=== PATIENT | male | born 1955 | race Caucasian/White ===

== ENCOUNTER → 2022-03-10 09:44 | Outpatient (POV) | payer BC, SELFPAY | PROVIDERS: Visit Provider Dermatology | DX: Z00.00 Encounter for general adult medical examination without abnormal findings (principal) ==

== ENCOUNTER → 2022-09-08 10:42 | Outpatient (CLI) | payer MEDICARE, SELFPAY ==
--- NOTE | 2022-09-08 10:51 | XR_ITS ---
FINAL REPORT CLINICAL HISTORY: left posterior shoulder pain that radiates into arm, numbness in left arm and fingers FINDINGS: LEFT SHOULDER 3 views of the left shoulder were obtained. There is no acute fracture or dislocation. There are mild degenerative changes of the acromioclavicular and glenohumeral joints.. There is no soft tissue abnormality. IMPRESSION: Mild degenerative change with no acute bony abnormality. Reviewed, Interpreted and Dictated by Lito Tolliver III, MD Transcribed by Courtney You Authenticated and [facility]
== END ==
PROVIDERS: PCP Nurse Practitioner Family; Visit Provider Orthopaedic Surgery
DX: M25.512 Pain in left shoulder (principal)
CPT/HCPCS: 73030

== ENCOUNTER → 2023-05-05 13:04 | Outpatient (CLI) | payer MEDICARE, OTHER, SELFPAY ==
[2023-05-05 12:11] LABS: Chloride 96 mmol/L (98-107); Potassium 4.9 mmoL/L (3.5-5.1); Sodium 136 mmol/L (136-145)
[2023-05-05 12:13] LABS: Alanine Aminotransferase 14 U/L (12-78); Alkaline Phosphatase 122 U/L (38-126); Aspartate Amino Transferase 23 U/L (17-59); Bilirubin,Total 0.6 mg/dl (0.2-1.3); Blood Urea Nitrogen 24 mg/dl (9-20); Estimated Glomerular Filt Rate 46 ml/min (>60); GFR (African American) 56 ML/MIN (>60)
[2023-05-05 12:14] LABS: Albumin Level 4.1 g/dl (3.5-5.0); Albumin/Globulin Ratio 1.6 (1.1-1.8); Anion Gap 18.9 mEq/L (5-15); Calcium 9.9 mg/dl (8.4-10.2); Carbon Dioxide 26 mmol/L (22.0-30.0); Chol/HDL Ratio 5.2 (1-3.5); Cholesterol 203 mg/dl (140-200); Globulin 2.6 g/dL (1.3-3.2); Glucose 329 mg/dl (74-100); HDL Cholesterol 39 mg/dl (40-60); Total Protein,Serum 6.7 g/dl (6.3-8.2); Triglycerides 215 mg/dl (30-150); VLDL Cholesterol 43 mg/dL (0-40)
[2023-05-05 12:25] LABS: Direct LDL Cholesterol 111.81 mg/dL (100-129)
== END ==
PROVIDERS: PCP Nurse Practitioner Family; Visit Provider Nurse Practitioner Family
DX: E11.9 Type 2 diabetes mellitus without complications (principal); E78.5 Hyperlipidemia, unspecified; I10 Essential (primary) hypertension; Z79.84 Long term (current) use of oral hypoglycemic drugs
CPT/HCPCS: 80053; 80061

== ENCOUNTER → 2023-08-09 12:31 | Outpatient (CLI) | payer MEDICARE, OTHER, SELFPAY ==
[2023-08-09 12:28] LABS: Basophils % 0.4 % (0.1-2.0); Eosinophils # 0.5 K/mm3 (0.0-0.4); Eosinophils % 6.9 % (0.1-12.0); Hematocrit 44.4 % (42.0-52.0); Hemoglobin 15.1 g/dL (14.1-18.0); Lymphocytes # 1.4 K/mm3 (0.7-4.5); Lymphocytes % 19.4 % (10-50); Mean Corpuscular HGB Conc 34.1 g/dL (31.8-35.4); Mean Corpuscular Hemoglobin 28.9 pg (27.0-31.2); Mean Corpuscular Volume 84.9 fl (80-94); Mean Platelet Volume 9.1 fl (7.4-10.4); Monocytes # 0.6 K/mm3 (0.1-1.0); Monocytes % 8.2 % (1.7-9.3); Neutrophils # 4.8 K/mm3 (1.8-7.8); Neutrophils % 65.1 % (37.0-80.0); Platelet Count 362 K/mm3 (142-424); Red Blood Count 5.23 M/mm3 (4.60-6.20); Red Cell Distribution Width 14.5 % (11.5-17.5); White Blood Count 7.4 K/mm3 (4.8-10.8)
[2023-08-09 12:56] LABS: Chloride 98 mmol/L (98-107)
[2023-08-09 12:57] LABS: Potassium 5.9 mmoL/L (3.5-5.1); Sodium 136 mmol/L (136-145)
[2023-08-09 12:59] LABS: Alanine Aminotransferase 12 U/L (12-78); Alkaline Phosphatase 92 U/L (38-126); Anion Gap 15.9 mEq/L (5-15); Aspartate Amino Transferase 23 U/L (17-59); Bilirubin,Total 0.6 mg/dl (0.2-1.3); Blood Urea Nitrogen 26 mg/dl (9-20); Carbon Dioxide 28 mmol/L (22.0-30.0); Cholesterol 156 mg/dl (140-200); Estimated Glomerular Filt Rate 46 ml/min (>60); GFR (African American) 56 ML/MIN (>60); Triglycerides 267 mg/dl (30-150); VLDL Cholesterol 53 mg/dL (0-40)
[2023-08-09 13:00] LABS: Albumin Level 4.6 g/dl (3.5-5.0); Albumin/Globulin Ratio 1.9 (1.1-1.8); Calcium 9.4 mg/dl (8.4-10.2); Chol/HDL Ratio 4.6 (1-3.5); Globulin 2.4 g/dL (1.3-3.2); Glucose 235 mg/dl (74-100); HDL Cholesterol 34 mg/dl (40-60)
[2023-08-09 13:11] LABS: Direct LDL Cholesterol 89.32 mg/dL (100-129)
[2023-08-09 13:31] LABS: Thyroid Stimulating Hormone 3.03 uIU/mL (0.465-4.68)
[2023-08-09 15:28] LABS: Hemoglobin A1C 9.2 % (4.0-6.0)
== END ==
PROVIDERS: PCP Nurse Practitioner Family; Visit Provider Nurse Practitioner Family
DX: E11.9 Type 2 diabetes mellitus without complications (principal); E78.5 Hyperlipidemia, unspecified; I10 Essential (primary) hypertension; R06.02 Shortness of breath; Z79.84 Long term (current) use of oral hypoglycemic drugs
CPT/HCPCS: 80053; 80061; 83036; 84443; 85025

== ENCOUNTER → 2023-08-16 14:30 | Outpatient (CLI) | payer MEDICARE, OTHER, SELFPAY ==
[2023-08-16 14:52] LABS: Potassium 4.8 mmoL/L (3.5-5.1)
== END ==
PROVIDERS: PCP Nurse Practitioner Family; Visit Provider Nurse Practitioner Family
DX: E87.5 Hyperkalemia (principal)
CPT/HCPCS: 84132

== ENCOUNTER → 2023-08-18 13:18 | Outpatient (CLI) | payer MEDICARE, OTHER, SELFPAY ==
--- NOTE | 2023-08-18 13:19 | CA_ITS ---
FINAL REPORT TECHNIQUE: Real-time imaging was performed of the extracranial carotid arteries in transverse and longitudinal planes, with color duplex evaluation of blood flow velocity. Spectral analysis was performed. The cervical vertebral arteries were also examined. CLINICAL HISTORY: screening for carotid artery stenosis, Family HX- MICHELLE w/ CEA's COMPARISON: None FINDINGS: NASCET technique is utilized for stenosis evaluation. Right carotid system (centimeters/second): CCA: 93 ICA: 258 ECA: 176 Vertebral artery: Antegrade ICA/CCA ratio: 2.8 Moderate plaque is identified at the bifurcation. Left carotid system (centimeters/second): CCA: 99 ICA: 222 ECA: 126 Vertebral artery: Antegrade ICA/CCA ratio: 2.25 Moderate plaque is identified at the bifurcation. IMPRESSION: 50-69% right ICA stenosis. 50-69% left ICA stenosis. Antegrade flow bilateral vertebral arteries. Reviewed, Interpreted and Dictated by Marvin Rowe MD Transcribed by Monisha Miramontes Authenticated and [facility]
--- NOTE | 2023-08-18 13:19 | CA_ITS ---
APPROVED REPORT EXAM: Comprehensive 2D, Doppler, and color-flow Echocardiogram [employer] Director: Evonne Altamirano RT(R) Ht: 5 ft 10 in Wt: 190lbs BSA: 2.04 BP: 124/52 mmHg Indications: murmur, dizziness, DM, family history of HD, hypokalemia, chest tightness 2D Dimensions LVEF (Oro's) 53.20 % M: 52 - 72 LV Volume 76.10 mL M: 62 - 150 LV Volume Index 37.3 mL/m2 M: 34 - 74 LA Volume 29.80 mL LA Volume Index 14.61 mL/m2 (M/F) 16-34 EF AP4 60.70 % EF AP2 38.2 % EF BP 53.2 % GL Strain -17.7 % M-Mode Dimensions RVDd 2.83 cm (0.9-2.6) LA Diam 3.19 cm (1.9-4.0) LVDd 4.48 cm (3.5-5.7) LVDs 3.22 cm (3.5-5.7) IVSd 1.11 cm (0.6-1.1) PWd 0.64 cm (0.6-1.1) EF (Teich) 54.50% FS 28.10% EDV (Teich) 91.50 mL ESV (Teich) 41.60 mL LV Diastology E Decel Time 213 (160-240 msec) E/A Ratio 0.7 Aortic Valve AoV Peak Stu. 256.0 (50-130 cm/s) AO Peak GR. 26.10 mmHg AO Mean GR. 12.80 (<5 mmHg) AO VTI 42.1 (18-25 cm) Mitral Valve MV E Max Stu. 74.0 (40-130 cm/s) MV A Velocity 102.0 (40-130 cm/s) E/A Ratio 0.72 MV PHT 62.0 ms Left Ventricle The left ventricle is normal size. The left ventricular systolic function is normal. The left ventricular ejection fraction is within the normal range. There is increased LV wall thickness. There is normal LV segmental wall motion. Transmitral Doppler flow pattern suggests impaired LV relaxation. LVEF is 60%. Right Ventricle The right ventricle is normal size. The right ventricular systolic function is normal. Atria The left atrium size is normal. The right atrium size is normal. There is no Doppler evidence of interatrial shunt. Aortic Valve The aortic valve is mildly thickened. Mild aortic stenosis. Peak velocity 2.6 m/s. Mean AV gradient 13 mmHg. Max AV gradient 26 mmHg. JONATHAN by continuity equation is 1.7 cm2. Trace aortic regurgitation. Mitral Valve The mitral valve leaflets are mildly thickened. No evidence of mitral valve stenosis. Trace mitral regurgitation. Tricuspid Valve The tricuspid valve leaflets are thin and pliable. Trace tricuspid regurgitation. There is insufficient TR jet to estimate RVSP. Pulmonic Valve The pulmonary valve is normal in structure. Trace pulmonic regurgitation. Great Vessels The aortic root is normal in size. The ascending aorta is not well-visualized. The IVC is not well-visualized. Pericardium There is no pericardial effusion. Other Information Study Quality: Fair Conclusion Normal biventricular systolic function. Mild aortic stenosis. Peak velocity 2.6 m/s. Mean AV gradient 13 mmHg. Max AV gradient 26 mmHg. JONATHAN by continuity equation is 1.7 cm2. Electronically signed by : Linda Barrett MD 08/23/2023 21:01:25
== END ==
PROVIDERS: PCP Nurse Practitioner Family; Visit Provider Nurse Practitioner Family
DX: R42 Dizziness and giddiness; Z13.6 Encounter for screening for cardiovascular disorders; R06.02 Shortness of breath; R01.1 Cardiac murmur, unspecified
CPT/HCPCS: 93306; 93880

== ENCOUNTER 2023-09-15 11:42 | Outpatient (CLI) | payer MEDICARE, OTHER, SELFPAY ==
--- NOTE | 2023-09-15 | CA_ITS ---
APPROVED REPORT Exam: Pharmacologic Technologist: Briana Sullivan, Ht: 5 ft 10 in Wt: 203 lbs BSA: 2.10 m2 HR: 76 bpm BP: 142/63 mmHg Rhythm: NSR, ST-T ABNS INFERIORLY AND NS ST ABNS LATERALLY Indications: CP, DIZZINESS Medical History Medical History: HTN, Hyperlipidemia, Diabetes Medications: Aspirin,,,,, Metformin,,,,, Atorvastatin,,,,, HCTZ,,,,, Magnesium,,,,, SeMaglutide,,,,, OmeGA-3,,,,, Gylyburide,,,,, Allergies: No known drug allergies Cardiac Risk Factors: HTN, Hyperlipidemia, Diabetes , FHX of CAD Stress Test Details Test: LEXISCAN HR Resting HR: 83 bpm Max Heart Rate (APMHR): 150 bpm Max HR Achieved: 105 bpm Target HR (85% APMHR): 128 bpm % of APMHR: 70 Recovery HR: 90 bpm BP Resting BP: 142/63 mmHg Max BP: 150/63 mmHg Recovery BP: 147.0/60.0 mmHg ECG Resting ECG: NSR, nonspecific ST changes in inferior and lateral leads Stress ECG: No significant ST changes Arrhythmia: None Clinical Exercise duration: 04:01 min Highest Stage Achieved: Stress ECG Conclusion Patient has mild dyspnea and headache. No chest pain Ectopy: None No significant ST changes. Conclusion: Unremarkable Lexiscan stress test. Myoview images are reported separately. Test Summary REST 03:53 . . 83 . 142/ 63 . . Stage 1 01:00 . . 103 . . . . Stage 2 01:00 . . 101 . 150/ 63 . . Stage 3 01:00 . . 98 . 139/ 59 . . Stage 4 01:00 . . 94 . 139/ 60 . . Stage 4 01:01 . . 94 . 139/ 60 . Stop exercise at 04:01 RECOVERY 01:00 . . 88 . . . . RECOVERY 02:00 . . 89 . 138/ 60 . . RECOVERY 03:00 . . 90 . 147/ 60 . . RECOVERY 03:28 . . 89 . 147/ 60 . . Electronically signed by : Linda Barrett MD 09/16/2023 03:12:33
--- NOTE | 2023-09-15 11:43 | NM_ITS ---
APPROVED REPORT Exam: Nuclear Stress Test Indication: SOB, DM, High cholesterol, Family history Patient Location: Outpatient Stress Tech: Briana Sullivan ID Tech:Sendy King, ARRT, RT (R)(N) Ht: 5 ft 11 in Wt: 193 lbs HR: 83 bpm BP: 142/63 mmHg BSA: 2.08 m2 Rhythm: NSR TID: 1.04 BMI: 26.9 History: SOB, DM, High cholesterol, Family history Procedure: Patient received 0.4 mg of intravenous Lexiscan, resting heart rate 83 bpm, resting blood pressure 142/63 mmHg, with Lexiscan maximum heart rate achieved was 105 bpm which is % of the maximum predicted heart rate and blood pressure was 150/63 mmHg. With Lexiscan, patient denied any complaint of chest pain. Cardiac Stress and Resting SPECT Images: Cardiac Stress and Resting SPECT images were obtained using technetium 99m Myoview 32.8 mCi stress and 10.90 mCi at rest. Resting and stress imaging in supine and prone positions demonstrate a medium sized, severe, fixed perfusion defect in the basal to mid inferior LV wall. Gated imaging demonstrates low normal global LV systolic function. There is severe hypokinesis of the basal inferior LV wall. LVEF is calculated at 53%. Conclusion: Medium sized, severe, fixed perfusion defect in the basal to mid inferior LV wall. No evidence of reversible ischemia. Gated imaging demonstrates low normal global LV systolic function. There is severe hypokinesis of the basal inferior LV wall. LVEF is calculated at 53%. Electronically signed by : Linda Barrett MD 09/16/2023 03:14:34
--- NOTE | 2023-09-15 12:54 | US_ITS ---
FINAL REPORT CLINICAL HISTORY: leg coldness, hyperlipidemia, DM, bilateral rest pain. COMPARISON: None FINDINGS: ANKLE-BRACHIAL PRESSURE INDICES Pressure indices are as follows: RIGHT LOWER EXTREMITY: Ankle-brachial pressure index: 1.2 Comments: Normal LEFT LOWER EXTREMITY: Ankle-brachial pressure index: 1.2 Comments: Normal IMPRESSION: No evidence of significant obstructive peripheral vascular disease of the lower extremities Reviewed, Interpreted and Dictated by Lito Tolliver III, MD Transcribed by Dede Mcknight Authenticated and [facility]
[2023-09-15] MEDS: SODIUM CHLORIDE 0.9% 10ML SYR (RAD ONLY) 10 ML IV ×2 (13:00)
[2023-09-15] MEDS: REGADENOSON 0.4MG/5ML SYRINGE 0.400000000000000022 MG IV (13:00)
[2023-09-15] MEDS: ISOTOPE MYOVIEW (PER STUDY) 1 DOSE IV (13:00)
== END 2023-09-15 23:59 ==
LOC: RAD 11:43
PROVIDERS: PCP Nurse Practitioner Family; Visit Provider Nurse Practitioner
DX: E78.5 Hyperlipidemia, unspecified (principal); I10 Essential (primary) hypertension; I20.89 Other forms of angina pectoris; I35.0 Nonrheumatic aortic (valve) stenosis; R01.1 Cardiac murmur, unspecified; R06.02 Shortness of breath; R42 Dizziness and giddiness; R20.9 Unspecified disturbances of skin sensation; I65.23 Occlusion and stenosis of bilateral carotid arteries; R09.89 Other specified symptoms and signs involving the circulatory and respiratory systems
CPT/HCPCS: 78452; 93017; 93018; 93923; A9502; J2785

== ENCOUNTER 2023-09-30 09:12 | Day surgery (SDC) | payer MEDICARE, OTHER, SELFPAY ==
[2023-09-30] VITALS (15 sets, daily range): BP systolic 108–168; BP diastolic 58–95; PULSE 57–72; RESP 13–19; TEMP 36.9; O2SAT 95–100; BMI 28.1
--- NOTE | 2023-09-30 07:19 | IR_ITS ---
APPROVED REPORT Patient Location: Outpatient PROCEDURES Left heart catheterization Left ventriculogram Selective coronary angiogram Bilateral selective vertebral angiography with intracerebral angiography Catheter placed in the right common carotid artery Right common carotid artery and right internal carotid artery selective angiography followed by intracerebral internal carotid artery angiography Left common carotid artery and left internal carotid artery selective angiography followed by intracerebral internal carotid artery angiography Bilateral selective renal angiography INDICATION Abnormal Myoview, Preoperative evaluation, Symptomatic carotid artery stenosis, Chronic renal insufficiency suspect renal artery stenosis with renovascular hypertension Informed consent was obtained prior to the procedure. COMPLICATIONS None Estimated Blood Loss: Less than 10 mls TECHNIQUE One percent lidocaine was used to anesthetize the right groin. The right femoral artery was accessed via the Seldinger technique. A 4-Irish sheath was placed in the right femoral artery. The JL-4 and JR-4 catheter was also used to perform left heart catheterization left ventriculogram and selective coronary angiogram. At the end the diagnostic angiogram a JR4 catheter was used to perform bilateral selective vertebral angiography as well as as bilateral internal carotid artery angiography followed by intracerebral angiography. Following this the same JR4 catheter was used to perform bilateral renal angiography. At the end the procedure the apparatus was removed the patient was transferred to the postop holding in stable condition for sheath removal ANGIOGRAPHIC RESULTS The left main artery Has a proximal 60 to 70% stenosis The left anterior descending artery Has a complex ostial greater than 50% eccentric stenosis followed by 40% stenosis which involves a large first diagonal artery followed by mid vessel hazy 70% calcified stenosis followed by mid vessel 50% stenosis. The large first diagonal artery has an ostial 80 to 90% stenosis followed by an additional 40 to 50% proximal stenosis The circumflex artery Nondominant and has a proximal concentric 80% stenosis The right coronary artery Is dominant proximally occluded and fills via [id number] collaterals The REYES ventriculogram reveals Preserved at 55% The left ventricular end-diastolic pressure 10 mmHg Bilateral vertebral arteries are widely patent Right common carotid artery has a distal 30% stenosis with a proximal smooth 40 to 50% stenosis in the right internal carotid artery. There were no distal intracerebral atherosclerotic plaques or aneurysmal dilatation is identified Left common carotid artery has a distal eccentric 30% stenosis with a proximal smooth 40 to 50% stenosis. There are no distal aneurysmal dilatations or atherosclerotic plaques in the intracerebral vasculature Left renal artery has a dual arterial supply with both arteries being widely patent Right renal artery singular with an ostial 10% stenosis IMPRESSION Severe three-vessel coronary disease as described above Preserved ejection fraction Normal LVEDP Normal bilateral vertebral arteries with excellent antegrade flow into the basilar artery Moderate bilateral internal carotid artery disease as described above with no distal aneurysmal dilatations or atherosclerotic plaque Mild right renal artery stenosis PLAN 1. Patient requires surgical revascularization for severe three-vessel coronary artery disease 2. Medical management for carotid artery disease with a goal LDL less than 55 to be achieved with a 10 intensity statin 3. Aggressive risk factor modification for probably vascular disease 4. Avoidance of tobacco products 5. Patient will be referred to [facility] CT surgery Electronically signed by : Guille Pak MD 09/30/2023 13:48:24
[2023-09-30] MEDS: ASPIRIN EC 81MG TABLET 81 MG PO (10:02)
[2023-09-30 10:11] LABS: Basophils % 0.6 % (0.1-2.0); Eosinophils # 0.3 K/mm3 (0.0-0.4); Eosinophils % 4.9 % (0.1-12.0); Hematocrit 47.8 % (42.0-52.0); Lymphocytes # 1.4 K/mm3 (0.7-4.5); Lymphocytes % 20.2 % (10-50); Mean Corpuscular HGB Conc 33.5 g/dL (31.8-35.4); Mean Corpuscular Hemoglobin 29.3 pg (27.0-31.2); Mean Corpuscular Volume 87.6 fl (80-94); Mean Platelet Volume 8.2 fl (7.4-10.4); Monocytes # 0.5 K/mm3 (0.1-1.0); Monocytes % 6.8 % (1.7-9.3); Neutrophils # 4.7 K/mm3 (1.8-7.8); Neutrophils % 67.5 % (37.0-80.0); Platelet Count 405 K/mm3 (142-424); Red Blood Count 5.46 M/mm3 (4.60-6.20)
[2023-09-30 10:15] LABS: Chloride 99 mmol/L (98-107)
[2023-09-30 10:16] LABS: Potassium 4.2 mmoL/L (3.5-5.1); Sodium 136 mmol/L (136-145)
[2023-09-30 10:18] LABS: Blood Urea Nitrogen 17 mg/dl (9-20); Creatinine Clearance Estimated 62 mL/min (50-200); Estimated Glomerular Filt Rate 50 ml/min (>60); GFR (African American) 61 ML/MIN (>60)
[2023-09-30 10:19] LABS: Anion Gap 14.2 mEq/L (5-15); Calcium 9.4 mg/dl (8.4-10.2); Carbon Dioxide 27 mmol/L (22.0-30.0); Glucose 331 mg/dl (74-100)
[2023-09-30] MEDS: diphenhydrAMINE 50MG/ML VIAL 50 MG IV (10:27)
[2023-09-30] MEDS: MIDAZOLAM HCL 1MG/1ML 5ML VIAL 1 MG IV (10:28)
[2023-09-30] MEDS: FENTANYL 100MCG/2ML VIAL 50 MCG IV (10:28)
[2023-09-30] MEDS: HEPARIN 1,000 UNITS/500ML NS (CATH LAB) 3000 UNIT IV (10:28)
[2023-09-30] MEDS: 0.9 % SODIUM CHLORIDE 500 ML 25 ML IV (10:28)
[2023-09-30] MEDS: IOPAMIDOL-370 (76%);100ML BOTTLE 90 ML IV (11:48)
== END 2023-09-30 14:28 | disposition home or self-care (01) ==
PROVIDERS: PCP Nurse Practitioner Family; Visit Provider Internal Medicine
DX: E78.5 Hyperlipidemia, unspecified (principal); I10 Essential (primary) hypertension; I25.118 Atherosclerotic heart disease of native coronary artery with other forms of angina pectoris; I35.0 Nonrheumatic aortic (valve) stenosis; R01.1 Cardiac murmur, unspecified; R42 Dizziness and giddiness; R94.39 Abnormal result of other cardiovascular function study; I65.23 Occlusion and stenosis of bilateral carotid arteries; I70.1 Atherosclerosis of renal artery; I77.1 Stricture of artery; I15.0 Renovascular hypertension; E11.9 Type 2 diabetes mellitus without complications; Z79.84 Long term (current) use of oral hypoglycemic drugs
CPT/HCPCS: 36224; 36226; 36228; 36252; 80048; 85025; 93458; 99152; C1725; C1769; C1894; J1644; Q9967

== ENCOUNTER 2023-10-15 10:23 | Outpatient (CLI) | payer MEDICARE, OTHER, SELFPAY ==
[2023-10-15 11:38] LABS: Alanine Aminotransferase 9 U/L (12-78); Albumin Level 4.4 g/dl (3.5-5.0); Alkaline Phosphatase 83 U/L (38-126); Anion Gap 13.2 mEq/L (5-15); Aspartate Amino Transferase 24 U/L (17-59); Bilirubin,Total 0.6 mg/dl (0.2-1.3); Blood Urea Nitrogen 20 mg/dl (9-20); Calcium 9.5 mg/dl (8.4-10.2); Carbon Dioxide 31 mmol/L (22.0-30.0); Chloride 99 mmol/L (98-107); Estimated Glomerular Filt Rate 55 ml/min (>60); GFR (African American) 66 ML/MIN (>60); Globulin 2.2 g/dL (1.3-3.2); Glucose 155 mg/dl (74-100); Potassium 5.2 mmoL/L (3.5-5.1); Sodium 138 mmol/L (136-145); Total Protein,Serum 6.6 g/dl (6.3-8.2)
== END 2023-10-15 23:59 ==
PROVIDERS: PCP Nurse Practitioner Family; Visit Provider Nurse Practitioner Family
DX: E11.9 Type 2 diabetes mellitus without complications (principal); E87.6 Hypokalemia; R79.89 Other specified abnormal findings of blood chemistry; Z79.84 Long term (current) use of oral hypoglycemic drugs
CPT/HCPCS: 36415; 80053; 83036

== ENCOUNTER 2023-12-24 14:49 | Outpatient (CLI) | payer MEDICARE, OTHER, SELFPAY ==
[2023-12-24 15:49] LABS: Alanine Aminotransferase 8 U/L (12-78); Albumin Level 4.2 g/dl (3.5-5.0); Albumin/Globulin Ratio 1.8 (1.1-1.8); Alkaline Phosphatase 114 U/L (38-126); Anion Gap 13.4 mEq/L (5-15); Aspartate Amino Transferase 20 U/L (17-59); Bilirubin,Total 0.6 mg/dl (0.2-1.3); Blood Urea Nitrogen 16 mg/dl (9-20); Calcium 9.7 mg/dl (8.4-10.2); Carbon Dioxide 27 mmol/L (22.0-30.0); Chloride 102 mmol/L (98-107); Chol/HDL Ratio 3.3 (1-3.5); Cholesterol 154 mg/dl (140-200); Estimated Glomerular Filt Rate 66 ml/min (>60); GFR (African American) 80 ML/MIN (>60); Globulin 2.3 g/dL (1.3-3.2); Glucose 167 mg/dl (74-100); HDL Cholesterol 46 mg/dl (40-60); Potassium 5.4 mmoL/L (3.5-5.1); Sodium 137 mmol/L (136-145); Total Protein,Serum 6.5 g/dl (6.3-8.2); Triglycerides 111 mg/dl (30-150); VLDL Cholesterol 22 mg/dL (0-40)
[2023-12-24 16:00] LABS: Direct LDL Cholesterol 84.08 mg/dL (100-129)
[2023-12-24 17:01] LABS: Hemoglobin A1C 8.7 % (4.0-6.0)
== END 2023-12-24 23:59 | disposition home or self-care (01) ==
LOC: LAB.DROPOF 14:50
PROVIDERS: PCP Nurse Practitioner Family; Visit Provider Nurse Practitioner Family
DX: E11.9 Type 2 diabetes mellitus without complications (principal); E78.5 Hyperlipidemia, unspecified; I10 Essential (primary) hypertension; Z79.4 Long term (current) use of insulin; Z79.84 Long term (current) use of oral hypoglycemic drugs
CPT/HCPCS: 80053; 80061; 82043; 83036

== ENCOUNTER 2024-04-06 14:02 | Outpatient (CLI) | payer MEDICARE, OTHER, SELFPAY ==
[2024-04-06 13:54] LABS: Microscopic, Urine URINE MICROSCOPIC (MICROSCOPIC)
[2024-04-06 14:14] LABS: Appearance,Urine CLEAR (Clear); Bilirubin,Urine Negative (Negative); Blood, Urine Negative (Negative); Color,Urine YELLOW (Yellow); Glucose,Urine (UA) 1+ (Negative); Ketones,Urine Negative (Negative); Leukocyte Esterase,Urine Negative (Negative); Nitrate,Urine Negative (Negative); Protein,Urine Negative (Negative); Specific Gravity, Urine >= 1.030 (1.005-1.030); Urobilinogen,Urine 0.2 EU/dl (0.2)
[2024-04-06 14:27] LABS: Hemoglobin A1C 8.2 % (4.0-6.0)
[2024-04-06 14:30] LABS: Creatinine,Urine Random 165 mg/dL (Not Estab.)
[2024-04-06 14:34] LABS: Microalbumin/Creatinine Ratio 11.3; WBC,Urine Occasional #/hpf (0-3)
[2024-04-06 14:42] LABS: Alanine Aminotransferase 13 U/L (12-78); Albumin Level 4.2 g/dl (3.5-5.0); Albumin/Globulin Ratio 1.6 (1.1-1.8); Alkaline Phosphatase 79 U/L (38-126); Anion Gap 16.7 mEq/L (5-15); Aspartate Amino Transferase 25 U/L (17-59); Bilirubin,Total 0.6 mg/dl (0.2-1.3); Blood Urea Nitrogen 28 mg/dl (9-20); Calcium 9.4 mg/dl (8.4-10.2); Carbon Dioxide 25 mmol/L (22.0-30.0); Chloride 101 mmol/L (98-107); Estimated Glomerular Filt Rate 55 ml/min (>60); GFR (African American) 66 ML/MIN (>60); Globulin 2.6 g/dL (1.3-3.2); Glucose 160 mg/dl (74-100); Potassium 4.7 mmoL/L (3.5-5.1); Sodium 138 mmol/L (136-145); Total Protein,Serum 6.8 g/dl (6.3-8.2)
== END 2024-04-06 23:59 | disposition home or self-care (01) ==
LOC: LAB.DROPOF 14:03
PROVIDERS: PCP Nurse Practitioner Family; Visit Provider Nurse Practitioner Family
DX: I10 Essential (primary) hypertension (principal); E11.9 Type 2 diabetes mellitus without complications; R39.9 Unspecified symptoms and signs involving the genitourinary system
CPT/HCPCS: 80053; 81001; 82043; 82570; 83036; 84156; 87086

== ENCOUNTER 2024-07-10 14:44 | Outpatient (CLI) | payer MEDICARE, OTHER, SELFPAY ==
[2024-07-10 14:01] LABS: Basophils # 0.1 K/mm3 (0-0.2); Basophils % 0.8 % (0.1-2.0); Eosinophils # 0.4 K/mm3 (0.0-0.4); Eosinophils % 5.6 % (0.1-12.0); Hematocrit 38.8 % (42.0-52.0); Hemoglobin 12.7 g/dL (14.1-18.0); Lymphocytes # 1.7 K/mm3 (0.7-4.5); Mean Corpuscular HGB Conc 32.6 g/dL (31.8-35.4); Mean Corpuscular Hemoglobin 26.4 pg (27.0-31.2); Monocytes # 0.6 K/mm3 (0.1-1.0); Monocytes % 8.2 % (1.7-9.3); Neutrophils # 4.8 K/mm3 (1.8-7.8); Neutrophils % 63.5 % (37.0-80.0); Platelet Count 416 K/mm3 (142-424); Red Blood Count 4.79 M/mm3 (4.60-6.20); Red Cell Distribution Width 14.7 % (11.5-17.5); White Blood Count 7.6 K/mm3 (4.8-10.8)
[2024-07-10 14:22] LABS: Alanine Aminotransferase 11 U/L (12-78); Albumin/Globulin Ratio 1.8 (1.1-1.8); Alkaline Phosphatase 74 U/L (38-126); Aspartate Amino Transferase 24 U/L (17-59); Bilirubin,Total 0.7 mg/dl (0.2-1.3); Blood Urea Nitrogen 24 mg/dl (9-20); Carbon Dioxide 24 mmol/L (22.0-30.0); Cholesterol 133 mg/dl (140-200); Estimated Glomerular Filt Rate 54 ml/min (>60); GFR (African American) 66 ML/MIN (>60); Globulin 2.2 g/dL (1.3-3.2); Potassium 4.9 mmoL/L (3.5-5.1); Total Protein,Serum 6.2 g/dl (6.3-8.2); Triglycerides 132 mg/dl (30-150); VLDL Cholesterol 26 mg/dL (0-40)
[2024-07-10 14:24] LABS: Anion Gap 16.9 mEq/L (5-15); Calcium 9.3 mg/dl (8.4-10.2); Chloride 101 mmol/L (98-107); Chol/HDL Ratio 3.7 (1-3.5); Glucose 163 mg/dl (74-100); HDL Cholesterol 36 mg/dl (40-60); Sodium 137 mmol/L (136-145)
[2024-07-10 14:28] LABS: HIV (1&2) Antibody Rapid NONREACTIVE (NONREACTIVE)
[2024-07-10 14:33] LABS: Direct LDL Cholesterol 71.21 mg/dL (100-129)
[2024-07-10 14:52] LABS: Thyroid Stimulating Hormone 4.29 uIU/mL (0.465-4.68)
[2024-07-10 22:31] LABS: Hemoglobin A1C 8.3 % (4.0-6.0)
[2024-07-11 10:22] LABS: HCV Ab Non Reactive (Non Reactive)
== END 2024-07-10 23:59 | disposition home or self-care (01) ==
LOC: LAB.DROPOF 14:45
PROVIDERS: PCP Nurse Practitioner Family; Visit Provider Nurse Practitioner Family
DX: E11.9 Type 2 diabetes mellitus without complications (principal); I10 Essential (primary) hypertension; E78.5 Hyperlipidemia, unspecified; Z11.4 Encounter for screening for human immunodeficiency virus [HIV]; Z11.59 Encounter for screening for other viral diseases
CPT/HCPCS: 80053; 80061; 83036; 84443; 85025; 86803; 87389

== ENCOUNTER 2024-10-18 09:30 | Outpatient (CLI) | payer MEDICARE, OTHER, SELFPAY ==
[2024-10-18 13:26] LABS: Creatinine,Urine Random 100 mg/dL (Not Estab.)
[2024-10-18 13:30] LABS: Microalbumin/Creatinine Ratio 7.6
[2024-10-18 13:57] LABS: Albumin Level 4.5 g/dl (3.5-5.0); Chloride 98 mmol/L (98-107); Potassium 4.5 mmoL/L (3.5-5.1); Sodium 138 mmol/L (136-145)
[2024-10-18 14:00] LABS: Alanine Aminotransferase 13 U/L (12-78); Albumin/Globulin Ratio 2.1 (1.1-1.8); Alkaline Phosphatase 106 U/L (38-126); Anion Gap 18.5 mEq/L (5-15); Aspartate Amino Transferase 23 U/L (17-59); Bilirubin,Total 0.6 mg/dl (0.2-1.3); Blood Urea Nitrogen 29 mg/dl (9-20); Calcium 9.4 mg/dl (8.4-10.2); Carbon Dioxide 26 mmol/L (22.0-30.0); Cholesterol 137 mg/dl (140-200); Estimated Glomerular Filt Rate 46 ml/min (>60); GFR (African American) 56 ML/MIN (>60); Globulin 2.1 g/dL (1.3-3.2); Glucose 197 mg/dl (74-100); Total Protein,Serum 6.6 g/dl (6.3-8.2); Triglycerides 332 mg/dl (30-150); VLDL Cholesterol 66 mg/dL (0-40)
[2024-10-18 14:01] LABS: Chol/HDL Ratio 4.9 (1-3.5); HDL Cholesterol 28 mg/dl (40-60)
[2024-10-18 14:13] LABS: Direct LDL Cholesterol 57.91 mg/dL (100-129)
[2024-10-18 14:27] LABS: Hemoglobin A1C 9.4 % (4.0-6.0)
[2024-10-18 14:33] LABS: Thyroid Stimulating Hormone 4.51 uIU/mL (0.465-4.68)
== END 2024-10-18 23:59 | disposition home or self-care (01) ==
LOC: LAB.DROPOF 10-19 09:20
PROVIDERS: PCP Nurse Practitioner Family; Visit Provider Nurse Practitioner Family
DX: E11.9 Type 2 diabetes mellitus without complications (principal); E78.5 Hyperlipidemia, unspecified; Z79.4 Long term (current) use of insulin; Z79.84 Long term (current) use of oral hypoglycemic drugs
CPT/HCPCS: 80053; 80061; 82043; 82570; 83036; 84443

== ENCOUNTER 2024-12-11 09:13 | Outpatient (CLI) | payer MEDICARE, OTHER, SELFPAY ==
[2024-12-11 15:21] LABS: Hemoglobin A1C 9.1 % (4.0-6.0)
[2024-12-11 17:27] LABS: Alanine Aminotransferase 10 U/L (12-78); Albumin/Globulin Ratio 1.5 (1.1-1.8); Alkaline Phosphatase 99 U/L (38-126); Aspartate Amino Transferase 23 U/L (17-59); Bilirubin,Total 0.5 mg/dl (0.2-1.3); Blood Urea Nitrogen 20 mg/dl (9-20); Carbon Dioxide 22 mmol/L (22.0-30.0); Chloride 98 mmol/L (98-107); Estimated Glomerular Filt Rate 50 ml/min (>60); GFR (African American) 60 ML/MIN (>60); Globulin 2.7 g/dL (1.3-3.2); Glucose 202 mg/dl (74-100); Sodium 137 mmol/L (136-145); Total Protein,Serum 6.7 g/dl (6.3-8.2)
== END 2024-12-11 23:59 | disposition home or self-care (01) ==
LOC: LAB.DROPOF 12-12 15:02
PROVIDERS: PCP Nurse Practitioner Family; Visit Provider Nurse Practitioner Family
DX: E11.9 Type 2 diabetes mellitus without complications (principal)
CPT/HCPCS: 80053; 83036

== ENCOUNTER 2025-05-29 10:48 | Outpatient (CLI) | payer MEDICARE, OTHER, SELFPAY ==
--- OUTSIDE RECORDS SUMMARY | 2025-05-30 10:11 | XMS_ITS | Clinical Summary ---
Author Organization [facility] Address [address] [place] [address] Care Team Providers Care Document Preparer Microfilming Name Role Phone CraigIrene Kenan CUEVA Primary Care Provider [phone] Guille Pak MD Unavailable Allergies No known active allergies Medications metFORMIN (Glucophage) 1000 MG tablet Take 1 tablet (1,000 mg) by mouth 2 (two) times a day with meals. Active glucose blood (FreeStyle Precision Damien Test) test strip Use as instructed 100 strip 11 4 Active Continuous Blood Gluc Mail Processing Equipment Mechanic (FreeStyle Giuliano 2 [place]) device Use as directed. 1 each 4 Active Continuous Blood Gluc Sensor (FreeStyle Giuliano 2 Sensor) misc Apply one censor every 14 days. 2 each 4 Active acetaminophen (Tylenol) 500 MG tablet Take 2 tablets (1,000 mg) by mouth every 6 (six) hours if needed for pain. 100 tablet 4 Active Blood Glucose Monitoring Suppl device Test once daily 1 each 4 Active Alcohol Sheets (Alcoh-Wipe) sheet Use as directed. 100 each 11 4 Active pen needle, diabetic 31G X 5 MM misc Use as directed with insulin pen. 100 each 4 Active glucose blood test strip Test twice daily 100 strip 11 4 Active Lancets misc Test twice daily 100 each 11 4 Active aspirin 81 MG chewable tablet Chew 1 tablet (81 mg) 1 (one) time each day. 30 tablet 3 4 Active atorvastatin (Lipitor) 80 MG tablet Take 1 tablet (80 mg) by mouth every night. 30 tablet 3 4 Active insulin glargine (Lantus SoloStar) 100 UNIT/ML injection pen Inject 20 Units under the skin every night. 15 mL 3 4 Active isosorbide mononitrate ER (Imdur) 30 MG 24 hr tablet Take 1 tablet (30 mg) by mouth 1 (one) time each day. Do not crush or chew. 30 tablet 3 4 Active methocarbamol (Robaxin) 500 MG tablet Take 1 tablet (500 mg) by mouth 4 (four) times a day. 40 tablet 4 Active metoprolol tartrate (Lopressor) 25 MG tablet Take 1 tablet (25 mg) by mouth 2 (two) times a day. 30 tablet 3 4 Active semaglutide (Rybelsus) 3 MG tablet Take 6 mg by mouth 1 (one) time each day before breakfast. 30 tablet 1 4 Active Sweetwater 3 1000 MG capsule Take 1,000 mg by mouth 1 (one) time each day. 60 capsule 1 4 Active Active Problems Problem Noted Date Diagnosed Date Acute blood loss as cause of postoperative anemi a 11/06/2023 Hyponatremia 11/06/2023 Primary hypertension 11/06/2023 CAD in [place] artery 11/01/2023 S/P CABG (coronary artery bypass graft) 11/01/19 24 Overview (11/06/2023): L radial artery graft Cervical radiculopathy due t o degenerative joint disease of spine 10/07/2023 Heart murmur 10/07/2023 Mild aortic stenosis 10/06/2023 HLD (hyperlipidemia) 10/06/2023 Carotid artery stenosis 10/06/2023 Type 2 diabetes mellitus 10/06/2023 Resolved Problems Problem Noted Date Diagnosed Date Resolved Date Postoperative pain 11/02/2023 5 Acute hypoxic respiratory failure 11/01/2023 11/06/2023 Overview (11/02/2023): Patient arrived intubated to ICU postop Patient extubated without difficulty. Wean O2 as tolerated Anemia 11/01/2023 11/06/2023 Overview (11/01/2023): Postop anemia, CTM Transfuse as indicated, Hgb <7 Abnormal cardiovascular stress test 10/07/2023 11/06/2023 Overview (11/01/2023): Stress test performed at outside hospital 09/23 showing LVEF 53% and severe hypokinesis of inferior LV wall OSH heart catheterization on 09/30 showed severe 3 vessel CAD with preserved EF. -s/p CABG -resume home medications as indicated Overweight (BMI 25.0-29.9) 10/07/2023 0 05/20/2025 Atypical angina 10/06/2023 11/06/2023 Overview (11/01/2023): Patient reported chest pain on exertion. OSH workup showed stenosis of multiple vessels, recommended CABG -3v CABG 10/31 -nitroglycerin drip post op -SBP goal <140 Immunizations Immunization Administration Dates Next Due Influenza Vaccine, Quadrivalent, Adjuvanted 05/31 [employer] Covid-19 Vaccine 12y+ , [place] Protein, PF, Williams-Sucrose 06/21/2023 Pneumococcal, Unspecified 11/17/2016 Family History Medical History Relation Name Comments Diabetes type II Brother Heart disease Brother Cancer Father Diabetes type II Father Heart disease Sister Anesthesia problems Neg Hx Malig Hyperthermia Neg Hx Relation Name Status Comments Brother Father Sister Social History Tobacco Use Types Packs/Day Years Used Date Smoking Tobacco: Never Smokeless Tobacco: Never Tobacco Cessation:Counseling Given: Not Answered Alcohol Use Standard Drinks/Week Comments Not Currently 0 (1 standard drink = 0.6 oz pur e alcohol) Overall Financial Resource Strain (CARDIA) Answe r Date Recorded How hard is it for you to pa y for the very basics like food, housing, medical care, and heating? Not hard at all 11/02/2023 Hunger Vital Sign Answer Date Recorded Within the past 12 months, y ou worried that your food would run out before you got the money to buy more. Never true 11/02/19 24 Within the past 12 months, t he food you bought just didn't last and you didn't have money to get more. Never true 11/02/2023 PRAPARE - Transportation Answer Date Re corded In the past 12 months, has l ack of transportation kept you from medical appointments or from getting medications? No 12/2023 In the past 12 months, has l ack of transportation kept you from meetings, work, or from getting things needed for daily living? No 11/02/2023 Housing Stability Vital Sign Answer César e Recorded In the last 12 months, was t here a time when you were not able to pay the mortgage or rent on time? No 11/02/2023 Number of Places Lived in the Last Year Not on f ile 11/02/2023 In the last 12 months, was t here a time when you did not have a steady place to sleep or slept in a prison (including now)? No 11/02/2023 CAGE ASSESSMENT Answer Date Recorded Cage unable to access Not on file 11/06/2023 Cage max number of drinks Not on file 2023 Cage Beverages a week Not on file 11/06/2023 Have you ever felt you should CUT down on your d rinking? 0 11/06/2023 Have you been ANNOYED by people criticizing your drinking? 0 11/06/2023 Have you felt GUILTY about your drinking? 0 11/06/2023 Have you had a drink first t patti in the morning (EYE-VETERINARIAN HELPER) to steady your nerves or to get rid of a hangover? 0 11/06/2023 CAGE Questionnaire Score 0 024 Sex and Gender Information Value Date Recorded Sex Assigned at Not on file Legal Sex Male 9:31 AM EST Gender Identity Not on file Sexual Orientation Not on file Occupation Industry Job Start Date Job End Date retired Not on file Not on file Not on file Last Filed Vital Signs Vital Sign Reading Time Taken Comments Blood Pressure 129/68 12/02/2023 1:36 PM EDT Pulse 74 12/02/2023 1:36 PM EDT Temperature 36.3 C (97.4 F) 11/06/2023 11:45 AM EST Respiratory Rate 18 11/06/2023 11:45 AM EST Oxygen Saturation 98% 12/02/2023 1:36 PM EDT Inhaled Oxygen Concentration - - Weight 88.3 kg (194 lb 9.6 oz) 12/02/2023 1:36 P M EDT Height 180.3 cm (5' 11 ) 12/02/2023 1:36 PM EDT Body Mass Index 27.14 12/02/2023 1:36 PM EDT Plan of Treatment Health Maintenance Due Date Last Done Comments [facility]-Depression Screening 1953 [facility]-Hepatitis C Screening 1955 [facility]-Medicare Annual Wellness (AWV) 1955 [facility]-/Child/Adol SDOH Screenings 1953 Diabetes: Dental Exam 1963 [facility]- SDOH Screenings 1971 [facility]-Adult SDOH Screenings 1971 [facility]-DTaP,Tdap,and Td Vaccines (1 - Tdap) 1972 [facility]-Pneumococcal Vaccine: 50+ Years (1 of 2 - PCV) 1972 11/17/2016 CT Colonography 1998 Colonoscopy 1998 FIT-DNA 1998 FIT 1998 FOBT 1998 Sigmoidoscopy 1998 [facility]-Colorectal Cancer Screening 1998 [facility]-Zoster Vaccines (1 of 2) 2003 [facility]-RSV Vaccine: 60+ Years or (1 - Risk 60-74 years 1-dose series) 2013 [facility]-Diabetes: Hemoglobin A1C 01/06/2024 10/07/2023 [id number] Vaccine ( season) 2025 06/21/2023, 06/17/2022, 06/23/2021, Additional history exists [facility]-Influenza Vaccine (#1) 2025 06/21/2023 [facility]-Obesity Intervention Completed 024, 10/07/2023, 10/07/2023 HPV Vaccines Aged Out No longer eligi ble based on patient's age to complete this topic [facility]-HIB Vaccines Aged Out No longer e ligible based on patient's age to complete this topic [facility]-Hepatitis A Vaccines Aged Out No longer eligible based on patient's age to complete this topic [facility]-IPV Vaccines Aged Out No longer e ligible based on patient's age to complete this topic [facility]-Rotavirus Vaccines Aged Out No lo nger eligible based on patient's age to complete this topic Procedures Procedure Name Priority Date/Time Associated Diagnosis Comments HEMOGLOBIN A1C Routine 10/07/2023 10:45 AM EST Bilateral carotid artery stenosis Pre-diabetes from Last 3 Months or Most Recently Relevant to Health Maintenance Results * (ABNORMAL) Hemoglobin A1c (10/07/2023 10:45 AM EST) Hemoglobin A1c 8.4(H) <5.7 % 10/07/2023 11:51 AM EST [facility] Blood Venous blood specimen / Unknown Venipuncture / Unknown 10/07/2023 10:45 AM EST 10/07/2023 10:47 AM EST Narrative [facility] - 10/07/2023 11:51 AM EST HA1C Interpretive Data: Diagnosis of Diabetes: Diabetic > or = 6.5% Pre-diabetic 5.7 to 6.4% Non-diabetic < or = 5.6% Glycemic Targets for Type I and Type II Diabetics: Non- Adults <7.0% Adults <6.0% Children and Adolescents <7.5% Source: [place] [employer]. Standards of medical care in diabetes,2017. Diabetes Care.2017:40 (suppl 1):S1-S135. HbA1c assay performed by an ion-exchange chromatography method that is certified traceable to the DCCT. us Adolfo Hernandez MD LAB BLOOD ORDERABLES Final [facility] [address] [place] [id number] from Last 3 Months or Most Recently Relevant to Health Maintenance Insurance [facility]IC[facility] Advance Directives * Full Code (Latest Code Status on File) Date Activated Date Inactivated Comments 11/01/2023 3:17 PM 11/06/2023 7:31 PM Question Answer Comments Patient has decision-making capacity? Yes * Full Code Date Activated Date Inactivated Comments 11/01/2023 3:12 PM 11/01/2023 3:17 PM Question Answer Comments Patient has decision-making capacity? Yes Care Teams Document Preparer Microfilming Relationship Specialty Start Date End Date Irene Srinivasan APRN [address] [place] [address] PCP - General 10/07/23 Guille Pak MD [facility] [address] [address] Referring Physician 10/08/23
== END 2025-05-29 23:59 | disposition home or self-care (01) ==
LOC: LAB.DROPOF 05-30 09:50
PROVIDERS: PCP Nurse Practitioner Family; Visit Provider Nurse Practitioner Family
DX: N52.9 Male erectile dysfunction, unspecified (principal)
CPT/HCPCS: 82627; 84402; 84403